=== PATIENT | male | born 1970 ===

== ENCOUNTER 2017-09-07 10:26 | Emergency (ER) | payer OTHER ==
[2017-09-07 10:27] VITALS: BMI 38.4
[2017-09-07] MEDS ORDERED: Sodium Chloride 0.9% 1,000 ML IV STA (10:55)
[2017-09-07] MEDS ORDERED: DiphenhydrAMINE 50 mg/ml Inj IVP STA (10:56)
[2017-09-07 11:32] LABS: URINE BILIRUBIN NEGATIVE (NEGATIVE); URINE BLOOD NEGATIVE (NEGATIVE); URINE GLUCOSE (UA) >=1000 mg/dL (NEGATIVE); URINE KETONE TRACE mg/dL (NEGATIVE); URINE LEUKOCYTE ESTERASE NEGATIVE Leu/uL (NEGATIVE); URINE PROTEIN NEGATIVE mg/dL (<30 mg/dL); URINE UROBILINOGEN 0.2 E.U./dL (<1 E.U./dL)
[2017-09-07 11:33] LABS: BASO # 0.03 K/mm3 (0.0-2.0); BASO % 0.3 % (0.0-3.0); EOS # 0.1 (0.0-0.7); EOS % 0.8 % (1.5-5.0); GRAN # 6.05 (1.4-6.5); GRAN % 68.7 % (50.0-68.0); HEMATOCRIT 46.9 % (42.0-52.0); LYMPH # 2.1 (1.2-3.4); MEAN CELL VOLUME 88.5 fl (80.0-105.0); MEAN CORPUSCULAR HEMOGLOBIN 30.8 pg (25.0-35.0); MEAN CORPUSCULAR HGB CONC 34.8 g/dl (31.0-37.0); MEAN PLATELET VOLUME 10.5 fl (7.0-11.0); MONO # 0.6 (0.1-0.6); MONO % 6.2 % (1.0-6.0); RED CELL DISTRIBUTION WIDTH 12.3 % (11.5-14.5); WHITE BLOOD COUNT 8.8 10^3/ul (4.5-11.0)
[2017-09-07 11:34] LABS: URINE APPEARANCE CLEAR (CLEAR); URINE COLOR YELLOW (YELLOW)
--- NOTE | 2017-09-07 11:54 | CT ---
PROCEDURE: CT HEAD WITHOUT CONTRAST. HISTORY: headache COMPARISON: 04/26/2014 TECHNIQUE: Axial computed tomography images were obtained through the head/brain without intravenous contrast. Radiation dose: Total exam DLP = mGy-cm. This CT exam was performed using one or more of the following dose reduction techniques: Automated exposure control, adjustment of the mA and/or kV according to patient size, and/or use of iterative reconstruction technique. FINDINGS: HEMORRHAGE: No intracranial hemorrhage. BRAIN: No mass effect or edema. No atrophy or chronic microvascular ischemic changes. VENTRICLES: Unremarkable. No hydrocephalus. CALVARIUM: Unremarkable. PARANASAL SINUSES: Unremarkable as visualized. No significant inflammatory changes. MASTOID AIR CELLS: Unremarkable as visualized. No inflammatory changes. OTHER FINDINGS: None. IMPRESSION: Normal CT of the Head. No intracranial mass, hemorrhage or evidence of acute infarct.
[2017-09-07 12:12] LABS: ALB/GLOB RATIO 1.1 (1.1-1.8); ALKALINE PHOSPHATASE 63 U/L (38-126); ALT/SGPT 19 U/L (7-56); AST/SGOT 22 U/L (17-59); BILIRUBIN,TOTAL 0.7 mg/dL (0.2-1.3); BLOOD UREA NITROGEN 12 mg/dL (7-21); CALCIUM 9.3 mg/dL (8.4-10.5); CARBON DIOXIDE 24 mmol/L (21-33); CHLORIDE 103 mmol/L (98-107); GFR AFRICAN-AMERICAN > 60; POTASSIUM 4.1 mmol/L (3.6-5.0); SODIUM 137 mmol/L (132-148)
[2017-09-07 12:15] LABS: GLUCOSE,RANDOM 355 mg/dL (70-110)
--- NOTE | 2017-09-07 13:23 | ED PDOC ---
Arrival/HPI - General Chief Complaint: Headache Time Seen by Provider: 09/07/17 10:35 Historian: Patient - History of Present Illness Narrative History of Present Illness (Text): 09/07/17 17:30 47 y/o male presents to the ED complaining of parietal region headache for one week. Headache is constant , nonradiating, and occasionally worse with movement. Pt denies any associated nausea, vomiting, dizziness, fever, nasal congestion, or vision changes.Pt has been taking Ibuprofen with temporary relief of headache. last dose of Ibuprofen was yesterday. States he saw his PCP a few days ago for the headache and was told it may be due to a dental problem. Pt however denies any hx of tooth ache or dental issues. Past Medical History - Provider Review Nursing Documentation Reviewed: Yes - Travel History Have you recently traveled outside [place] w/in the past 3 mons?: No - Past History Past History: Non-Contributing - Tetanus Immunization Tetanus Immunization: Unknown - Cardiac Hx Cardiac Disorders: No - Pulmonary Hx Respiratory Disorders: No - Neurological Hx Neurological Disorder: No - HEENT Hx HEENT Disorder: No - Renal Hx Renal Disorder: No - Endocrine/Metabolic Hx Endocrine Disorders: Yes Hx Diabetes Mellitus Type 2: Yes - Hematological/Oncological Hx Blood Disorders: No - Integumentary Hx Dermatological Disorder: No - Musculoskeletal/Rheumatological Hx Musculoskeletal Disorders: No - Gastrointestinal Hx Gastrointestinal Disorders: No - Genitourinary/Gynecological Hx Genitourinary Disorders: No - Psychiatric Hx Psychophysiologic Disorder: No Hx Substance Use: No - Surgical History Hx Musculoskeletal Surgery: Yes (right ankle surgery) - Anesthesia Hx Anesthesia: Yes Hx Anesthesia Reactions: No Hx Malignant Hyperthermia: No Family/Social History - Physician Review Nursing Documentation Reviewed: Yes Family/Social History: No Known Family HX Smoking Status: Heavy Smoker > 10 Cigarettes Daily Hx Alcohol Use: Yes Hx Substance Use: No Allergies/Home Meds Allergies/Adverse Reactions: Allergies No Known Allergies Allergy (Verified 09/07/17 10:35) Home Medications: Home Meds Medication Instructions Recorded Confirmed metFORMIN ER [glucoPHAGE XR] 500 mg PO BID 11/22/16 09/07/17 Saxagliptin HCl [Onglyza] 5 mg PO DAILY 09/07/17 09/07/17 Review of Systems - Physician Review All systems were reviewed & negative as marked: Yes - Review of Systems Constitutional: absent: Fevers Eyes: absent: Vision Changes ENT: absent: Sore Throat, Rhinorrhea, Sinus Congestion Respiratory: absent: Cough Gastrointestinal: absent: Nausea, Vomiting Skin: absent: Rash Neurological: Headache. absent: Dizziness, Focal Weakness, Gait Changes, Speech Changes, Facial Droop, Disequilibrium Physical Exam Vital Signs Reviewed: Yes Vital Signs Temp Pulse Resp BP Pulse Ox 09/07/17 14:04 98 F 76 16 124/88 97 09/07/17 13:17 98.1 F 89 17 143/89 99 09/07/17 10:30 98.0 F 89 18 151/99 H 99 Temperature: Afebrile Blood Pressure: Hypertensive Pulse: Regular Respiratory Rate: Normal Appearance: Positive for: Well-Appearing, Non-Toxic Pain Distress: Mild Mental Status: Positive for: Alert and Oriented X 3 - Systems Exam Head: Present: Atraumatic, Normocephalic. No: Tenderness Pupils: Present: PERRL Extroacular Muscles: Present: EOMI Conjunctiva: Present: Normal Ears: Present: Normal, NORMAL TM Mouth: Present: Moist Mucous Membranes Pharnyx: Present: Normal Neck: Present: Normal Range of Motion. No: Meningeal Signs Respiratory/Chest: Present: Clear to Auscultation Cardiovascular: Present: Regular Rate and Rhythm Upper Extremity: Present: Normal Inspection, Normal ROM, Neurovascularly Intact Lower Extremity: Present: Normal Inspection, Normal ROM, Neurovascularly Intact Neurological: Present: GCS=15, Speech Normal, Motor Func Grossly Intact, Normal Sensory Function, Normal Cerebellar Funct, Gait Normal Skin: Present: Warm, Dry Psychiatric: Present: Alert, Oriented x 3 Medical Decision Making ED Course and Treatment: 09/07/17 17:35 Headache x one week. Rule out intracranial hemorrhage. No neuro deficits while in the ED. Negative CT head without contrast. Headache resolved after Toradol, IV fluids, Reglan and diphenhydramine were given. Headache likely due to tension vs migraine headache. Reassessment Condition: Improved - Lab Interpretations Lab Results: 09/07/17 11:00 09/07/17 11:00 Lab Results 09/07/17 13:15: POC Glucose (mg/dL) 170 H 09/07/17 11:00: Sodium 137, Potassium 4.1, Chloride 103, Carbon Dioxide 24, Anion Gap 14, BUN 12, Creatinine 0.7 L, Est GFR ( Amer) > 60, Est GFR ( Non-Af Amer) > 60, Random Glucose 355 H* D, Calcium 9.3, Total Bilirubin 0.7, AST 22, ALT 19, Alkaline Phosphatase 63, Total Protein 8.0, Albumin 4.2, Globulin 3.8, Albumin/Globulin Ratio 1.1 09/07/17 11:00: Urine Color Yellow, Urine Appearance Clear, Urine pH 6.0, Ur Specific Carbon 1.020, Urine Protein Negative, Urine Glucose (UA) >=1000, Urine Ketones Trace H, Urine Blood Negative, Urine Nitrate Negative, Urine Bilirubin Negative, Urine Urobilinogen 0.2, Ur Leukocyte Esterase Negative 09/07/17 11:00: WBC 8.8, RBC 5.30, Hgb 16.3, Hct 46.9, MCV 88.5, MCH 30.8, MCHC 34.8, RDW 12.3, Plt Count 226, MPV 10.5, Gran % 68.7 H, Lymph % (Auto) 24.0, [place] % (Auto) 6.2 H, Eos % (Auto) 0.8 L, Baso % (Auto) 0.3, Gran # 6.05, Lymph # 2.1, [place] # 0.6, Eos # 0.1, Baso # 0.03 09/07/17 10:42: POC Glucose (mg/dL) 265 H - RAD Interpretation Radiology Orders: 09/07/17 10:56 HEAD W/O CONTRAST [CT] Stat - Medication Orders Current Medication Orders: Discontinued Medications Acetaminophen (Tylenol 325mg Tab) 975 mg PO STAT STA Stop: 09/07/17 10:56 Last Admin: 09/07/17 11:12 Dose: 975 mg Diphenhydramine HCl (Benadryl) 50 mg IVP STAT STA Stop: 09/07/17 10:57 Last Admin: 09/07/17 11:12 Dose: 50 mg IVP Administration Document 09/07/17 11:12 [facility] [place] 09/07/17 11:12 [facility] [id number][place] Charges for Administration # of IVP Administrations 1 Sodium Chloride (Sodium Chloride 0.9%) 1,000 mls @ 999 mls/hr IV .Q1H1M STA Stop: 09/07/17 11:55 Last Admin: 09/07/17 11:13 Dose: 999 mls/hr eMAR Start Stop Document 09/07/17 11:13 [facility] (Rec: 09/07/17 11:13 [facility] [id number]) Intravenous Solution Start Date 09/07/17 Start Time 11:13 End Date 09/07/17 End time 12:15 Total Infusion Time 62 Ketorolac Tromethamine (Toradol) 30 mg IVP STAT STA Stop: 09/07/17 11:56 Last Admin: 09/07/17 12:00 Dose: 30 mg MAR Pain Assessment Document 09/07/17 12:00 [facility] (Rec: 09/07/17 12:01 [facility] [id number]) Pain Reassessment Is this a pain reassessment? Yes Sleep Is patient sleeping during reassessment? 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 Description Intensity of Pain at present 5 IVP Administration Document 09/07/17 12:00 [facility] (Rec: 09/07/17 12:01 [facility] [id number]) Charges for Administration # of IVP Administrations 1 Metoclopramide HCl (Reglan) 10 mg IVP STAT STA Stop: 09/07/17 10:57 Last Admin: 09/07/17 11:12 Dose: 10 mg IVP Administration Document 09/07/17 11:12 [facility] (Rec: 09/07/17 11:12 [facility] [id number]) Charges for Administration # of IVP Administrations 1 Disposition/Present on Arrival - Present on Arrival Any Indicators Present on Arrival: No History of DVT/PE: No History of Uncontrolled Diabetes: No Urinary Catheter: No History of Decub. Ulcer: No History Surgical Site Infection Following: None - Disposition Have Diagnosis and Disposition been Completed?: Yes Diagnosis: Headache Disposition: HOME/ ROUTINE Disposition Time: 13:20 Patient Plan: Discharge Condition: STABLE Discharge Instructions (ExitCare): Acute Headache (ED) Print Language: STATELESS Additional Instructions: Take medication as directed. Drink plenty of fluids. Follow up with neurologist if symptoms keep reoccurring. Return to the ED if symptoms worsen or if new symptoms such as vision changes, fever, or weakness or numbness develops. Prescriptions: Acetaminophen/Butalbital/Caf [Fioricet] 1 tab PO Q4 PRN #12 tab PRN Reason: Headache Referrals: William Hughes MD [Staff Provider] - Follow up with primary
[2017-09-07 14:04] VITALS: BP 124/88; PULSE 76; RESP 16; TEMP 98; O2SAT 97
== END 2017-09-07 14:33 | disposition home or self-care (01) ==
LOC: ED 10:26
DX: R51 Headache (principal); E11.9 Type 2 diabetes mellitus without complications
CPT/HCPCS: 70450; 80053; 81003; 82948; 85025; 96361; 96374; 96375; 99285; J1200; J1885; J2765; J7040